=== PATIENT | female | born 1955 | race Caucasian/White ===

== ENCOUNTER 2019-03-10 02:00 | Observation (INO) | payer OTHER ==
--- NOTE | 2019-03-10 02:17 | EDPHY ---
H & P Stated Complaint: RIGHT FLANK PAIN Time Seen by Provider: 03/10/19 02:17 HPI/ROS: Chief Complaint: Severe right kidney pain HPI: Patient was sleeping peacefully tonight when she suddenly woke w severe right flank pain. She has never had before. It is constant it waxes and wanes but never goes away completely. She denies any abdominal pain. She does state that she has had frequency and has also been very thirsty. PMH: Negative. No history of kidney stones Social History: Denies Tobacco use ROS: Neuro: No headache Constitutional: No Fever, No dizziness ENT: No runny nose, No sore throat Cardiac: No Chest Pain Pulmonary: No Shortness of Breath GI: No abdominal Pain Skin: No rash Heme: No easy bruising : Positive urgency, frequency, dysuria Eyes: No vision problems Musculoskeletal: No neck pain, positive back pain Complete Review of systems negative except as noted above Physical Exam: General: Alert in severe distress from pain, very colicky appearing rocking on the bed Eyes: no icterus or pallor ENT: Mouth: Mucus membranes dry Neck: supple Lungs CTA bilaterally, no respiratory distress Cardiac: Normal pulses, normal rate, normal rhythm, normal heart sounds GI: Abd Soft, non tender, no distention no pulsatile mass or bruit Back: Normal inspection, nml ROM, No CVAT, no vertebral tenderness Extremities: No swelling, nml ROM Skin: Warm, pink and dry, no rash, normal turgor Neuro: A&Ox3, MAEE, Nml Speech Reevaluations, MDM, and data interpretation Data Interpretation CT Independently viewed by me ED Course Initial Eval: Pt greeted and advised about plan for care. Initially she declined pain medicine Reevaluation On re-evaluation the patient's pain is improved but she still rocking on the bed uncomfortably. Therefore repeat pain medications are ordered. We discussed discharge home versus admission to the hospital and at this point she think she needs to be admitted to the hospital. Consult Dr.De Price, Case discussed with hospitalist Dr. Miramontes Medical Decision Making Differential Diagnosis and MDM: 63-year-old female with acute severe flank pain. Differential diagnosis includes cholecystitis, renal colic, appendicitis , pyelonephritis and hydronephrosis. The patient had severe pain that was persistent so CT scan done which does reveal significant hydronephrosis along with a 7 mm stone concerning for need for intervention. She then has infected urine as well present on admission and this in combination with an obstructing stone warrants admission to the hospital, IV antibiotics and potential operative intervention. I did discuss the case with the hospitalist who accepts the patient for admission and will contact Urology. - Personal History Current Tetanus/Diphtheria Vaccine: Yes Current Tetanus Diphtheria and Acellular Pertussis (TDAP): Yes - Medical/Surgical History Hx Asthma: No Hx Chronic Respiratory Disease: No Hx Diabetes: No Hx Cardiac Disease: No Hx Renal Disease: No Hx Cirrhosis: No Hx Alcoholism: No Hx HIV/AIDS: No Hx Splenectomy or Spleen Trauma: No - Social History Smoking Status: Never smoked Constitutional: Initial Vital Signs Temperature (C) 36.6 C 03/10/19 02:03 Heart Rate 67 03/10/19 02:03 Respiratory Rate 18 03/10/19 02:03 Blood Pressure 193/102 H 03/10/19 02:03 O2 Sat (%) 96 03/10/19 02:03 O2 Delivery Mode Room Air Allergies/Adverse Reactions: No Known Allergies Allergy (Verified 03/10/19 08:05) Home Medications: Medication Instructions Recorded Calcium Carbonate [Oyster Shell 500 mg PO DAILY 03/10/19 Calcium 500 mg (*)] Herbals/Supplements -Info Only 1 ea PO DAILY 03/10/19 Loratadine [Claritin 10 mg] 10 mg PO DAILY 03/10/19 Multivitamins [Multivitamin (*)] 1 each PO DAILY 03/10/19 Medical Decision Making - Diagnostics Imaging Results: Imaging Impressions Abdomen/Pelvis CT 03/10/19 02:28 IMPRESSION: 1. Moderate right hydronephrosis due to obstructing 7 mm calculus at the right ureterovesicular junction. 2. Small hiatal hernia. 3. Moderate diverticulosis. Final results are concordant with initial interpretation. Preliminary report was communicated to the referring provider at 3:09 AM. MAMADOU. - Data Points Laboratory Results: Laboratory Results 03/10/19 02:16 03/10/19 02:16 03/10/19 03/10/19 03/10/19 02:16 02:16 02:05 WBC 8.68 10^3/uL 10^3/uL (3.80-9.50) RBC 4.67 10^6/uL 10^6/uL (4.18-5.33) Hgb 14.0 g/dL g/dL (12.6-16.3) Hct 43.3 % % (38.0-47.0) MCV 92.7 fL fL (81.5-99.8) MCH 30.0 pg pg (27.9-34.1) MCHC 32.3 g/dL L g/dL (32.4-36.7) RDW 12.9 % % (11.5-15.2) Plt Count 210 10^3/uL 10^3/uL (150-400) MPV 10.8 fL fL (8.7-11.7) Neut % (Auto) 49.5 % % (39.3-74.2) Lymph % (Auto) 40.2 % % (15.0-45.0) [place] % (Auto) 6.6 % % (4.5-13.0) Eos % (Auto) 2.8 % % (0.6-7.6) Baso % (Auto) 0.7 % % (0.3-1.7) Nucleat RBC Rel Count 0.0 % % (0.0-0.2) Absolute Neuts (auto) 4.30 10^3/uL 10^3/uL (1.70-6.50) Absolute Lymphs (auto) 3.49 10^3/uL H 10^3/uL (1.00-3.00) Absolute Monos (auto) 0.57 10^3/uL 10^3/uL (0.30-0.80) Absolute Eos (auto) 0.24 10^3/uL 10^3/uL (0.03-0.40) Absolute Basos (auto) 0.06 10^3/uL 10^3/uL (0.02-0.10) Absolute Nucleated RBC 0.00 10^3/uL 10^3/uL (0-0.01) Immature Gran % 0.2 % % (0.0-1.1) Immature Gran # 0.02 10^3/uL 10^3/uL (0.00-0.10) Sodium 138 mEq/L mEq/L (135-145) Potassium 3.9 mEq/L mEq/L (3.5-5.2) Chloride 103 mEq/L mEq/L (97-110) Carbon Dioxide 25 mEq/l mEq/l (22-31) Anion Gap 10 mEq/L mEq/L (6-14) BUN 33 mg/dL H mg/dL (7-23) Creatinine 1.0 mg/dL mg/dL (0.6-1.0) Estimated GFR 56 Glucose 160 mg/dL H mg/dL (70-100) Calcium 9.2 mg/dL mg/dL (8.5-10.4) Urine Color YELLOW Urine Appearance MODERATELY TURBID Urine pH 7.0 (5.0-7.5) Ur Specific [place] 1.013 (1.002-1.030) Urine Protein NEGATIVE (NEGATIVE) Urine Ketones NEGATIVE (NEGATIVE) Urine Blood 1+ H (NEGATIVE) Urine Nitrate NEGATIVE (NEGATIVE) Urine Bilirubin NEGATIVE (NEGATIVE) Urine Urobilinogen NEGATIVE EU EU (0.2-1.0) Ur Leukocyte Esterase 1+ H (NEGATIVE) Urine RBC 3-5 /hpf H /hpf (0-3) Urine WBC 25-50 /hpf H /hpf (0-3) Ur Epithelial Cells TRACE /lpf /lpf (NONE-1+) Urine Bacteria TRACE /hpf H /hpf (NONE SEEN) Urine Mucus TRACE /lpf /lpf (NONE-1+) Urine Glucose NEGATIVE (NEGATIVE) Medications Given: Acetaminophen (Tylenol) 650 mg PO Q4HRS PRN PRN Reason: Pain, Mild/Fever, Can Take PO Stop: 09/06/19 04:36 Last Admin: 03/10/19 07:40 Dose: 650 mg Sodium Chloride (Ns) 1,000 mls @ 150 mls/hr IV CONT HAYDEE Stop: 09/06/19 04:44 Last Admin: 03/10/19 08:25 Dose: 1,000 mls Ketorolac Tromethamine (Toradol) 15 mg IVP Q6HRS PRN PRN Reason: Moderate pain Stop: 03/15/19 05:59 Last Admin: 03/10/19 08:25 Dose: 15 mg Ondansetron HCl (Zofran) 4 mg IVP Q4HRS PRN PRN Reason: Nausea/Vomiting, Can't Take PO Stop: 09/06/19 04:36 Last Admin: 03/10/19 04:59 Dose: 4 mg Oxycodone HCl (Oxycodone Ir) 5 mg PO Q4HRS PRN PRN Reason: Pain, Severe Able to Take PO Stop: 03/20/19 04:36 Last Admin: 03/10/19 05:41 Dose: 5 mg Tamsulosin HCl (Flomax) 0.4 mg PO DAILY HAYDEE Stop: 09/06/19 08:59 Last Admin: 03/10/19 08:24 Dose: 0.4 mg Discontinued Medications Hydromorphone HCl (Dilaudid) 0.5 mg IVP EDNOW ONE Stop: 03/10/19 04:16 Last Admin: 03/10/19 04:54 Dose: 0.5 mg Sodium Chloride (Ns) 1,000 mls @ 0 mls/hr IV ONCE ONE PRN Reason: Wide Open Stop: 03/10/19 02:24 Last Admin: 03/10/19 02:31 Dose: 1,000 mls Lidocaine HCl 90 mg/ Sodium (Chloride) 109 mls @ 71.358 mls/hr IV EDNOW ONE Stop: 03/10/19 04:31 Last Admin: 03/10/19 03:14 Dose: 109 mls Ceftriaxone Sodium/Dextrose (Rocephin 1 Gm (Premix)) 50 mls @ 100 mls/hr IV EDNOW ONE PRN Reason: Protocol Stop: 03/10/19 03:45 Last Admin: 03/10/19 04:57 Dose: 50 mls Lactated Ringer's (Lr) 1,000 mls @ 500 mls/hr IV EDNOW ONE Stop: 03/10/19 06:36 Last Admin: 03/10/19 05:41 Dose: 1,000 mls Ketorolac Tromethamine (Toradol) 15 mg IVP EDNOW ONE Stop: 03/10/19 02:24 Last Admin: 03/10/19 02:30 Dose: 15 mg Phenazopyridine HCl (Pyridium) 200 mg PO EDNOW ONE Stop: 03/10/19 03:30 Last Admin: 03/10/19 03:34 Dose: 200 mg Departure - Departure Disposition: [facility] Acute Clinical Impression: Calculus of right kidney, Hydronephrosis concurrent with and due to calculi of kidney and ureter, Acute pyelonephritis Condition: Fair
[2019-03-10] MEDS ORDERED: LIDOCAINE IV ONE (02:20)
[2019-03-10] MEDS ORDERED: NS IV ONE (02:20)
[2019-03-10] MEDS ORDERED: NS 1,000 ML IV ONE (02:23)
[2019-03-10] MEDS ORDERED: KETOROLAC 15 MG/1 ML SDV IVP ONE (02:23)
[2019-03-10 02:36] LABS: PLATELET COUNT 210 10^3/uL (150-400)
[2019-03-10] MEDS ORDERED: LIDOCAINE 1% 90 MG in NS 100 ML IV ONE (03:00)
[2019-03-10] MEDS ORDERED: PHENAZOPYRIDINE HCL 200 MG TAB PO ONE (03:29)
[2019-03-10] MEDS ORDERED: HYDROmorphONE/DILAUDID 2 MG/ML INJ IVP ONE (04:15)
[2019-03-10] MEDS ORDERED: ONDANSETRON 4 MG/2 ML VIAL IVP PRN (04:37)
[2019-03-10] MEDS ORDERED: LR 1,000 ML IV ONE (04:37)
[2019-03-10] MEDS ORDERED: HYDROmorphONE/DILAUDID 1 MG/ML INJ IVP PRN (04:37)
[2019-03-10] MEDS ORDERED: ONDANSETRON DISINTEGRATING 4 MG TAB PO PRN (04:37)
[2019-03-10] MEDS ORDERED: HYDROmorphONE/DILAUDID 1 MG/ML INJ ONE (04:44)
--- NOTE | 2019-03-10 04:57 | PDGENHP ---
History and Physical - Chief Complaint R flank pain - History of Present Illness 63 yo F w/ no PMHx presents with R flank pain. The pain woke her up from sleep around 1 AM. She was in usual state of good health yesterday. She is also feeling chills and urgency since the onset of the pain. Her pain is improved after pain medication in the ED. She is not displaying sepsis physiology. CT demonstrates 7 mm R sided stone. UA w/ mild inflammation and hematuria. She is being admitted for hydration, pain control, and possible urology intervention. Case discussed with ED physician Dr. Harden. History Information - Allergies/Home Medication List Allergies/Adverse Reactions: No Known Allergies Allergy (Unverified 03/10/19 02:05) Home Medications: NK [No Known Home Meds] 03/10/19 [Last Taken Unknown] I have personally reviewed and updated: family history, medical history - Past Medical History no pertinent PMH - Surgical History Reports: no pertinent surgical hx - Family History Additional family history: No hx of kidney stones - Social History Smoking Status: Never smoked Review of Systems Review of Systems: ROS: 10pt was reviewed & negative except for what was stated in HPI & below Physical Exam Physical Exam: Temp Pulse Resp BP Pulse Ox 36.6 C 87 16 121/88 H 95 03/10/19 02:03 03/10/19 04:49 03/10/19 04:49 03/10/19 04:49 03/10/19 04:49 Constitutional: appears nourished, uncomfortable Eyes: PERRL, EOMI Ears, Nose, Mouth, Throat: moist mucous membranes, no oral mucosal ulcers Cardiovascular: regular rate and rhythym, no murmur, rub, or gallop Respiratory: no respiratory distress, clear to auscultation Gastrointestinal: normoactive bowel sounds, soft, non-tender abdomen Skin: warm, normal color Musculoskeletal: full muscle strength, no muscle tenderness Neurologic: AAOx3, CN II-XII Intact Psychiatric: interacting appropriately, not anxious Lab Data & Imaging Review 03/10/19 02:16 03/10/19 02:16 WBC 8.68 10^3/uL (3.80-9.50) 03/10/19 02:16 RBC 4.67 10^6/uL (4.18-5.33) 03/10/19 02:16 Hgb 14.0 g/dL (12.6-16.3) 03/10/19 02:16 Hct 43.3 % (38.0-47.0) 03/10/19 02:16 MCV 92.7 fL (81.5-99.8) 03/10/19 02:16 MCH 30.0 pg (27.9-34.1) 03/10/19 02:16 MCHC 32.3 g/dL (32.4-36.7) L 03/10/19 02:16 RDW 12.9 % (11.5-15.2) 03/10/19 02:16 Plt Count 210 10^3/uL (150-400) 03/10/19 02:16 MPV 10.8 fL (8.7-11.7) 03/10/19 02:16 Neut % (Auto) 49.5 % (39.3-74.2) 03/10/19 02:16 Lymph % (Auto) 40.2 % (15.0-45.0) 03/10/19 02:16 [place] % (Auto) 6.6 % (4.5-13.0) 03/10/19 02:16 Eos % (Auto) 2.8 % (0.6-7.6) 03/10/19 02:16 Baso % (Auto) 0.7 % (0.3-1.7) 03/10/19 02:16 Nucleat RBC Rel Count 0.0 % (0.0-0.2) 03/10/19 02:16 Absolute Neuts (auto) 4.30 10^3/uL (1.70-6.50) 03/10/19 02:16 Absolute Lymphs (auto) 3.49 10^3/uL (1.00-3.00) H 03/10/19 02:16 Absolute Monos (auto) 0.57 10^3/uL (0.30-0.80) 03/10/19 02:16 Absolute Eos (auto) 0.24 10^3/uL (0.03-0.40) 03/10/19 02:16 Absolute Basos (auto) 0.06 10^3/uL (0.02-0.10) 03/10/19 02:16 Absolute Nucleated RBC 0.00 10^3/uL (0-0.01) 03/10/19 02:16 Immature Gran % 0.2 % (0.0-1.1) 03/10/19 02:16 Immature Gran # 0.02 10^3/uL (0.00-0.10) 03/10/19 02:16 Sodium 138 mEq/L (135-145) 03/10/19 02:16 Potassium 3.9 mEq/L (3.5-5.2) 03/10/19 02:16 Chloride 103 mEq/L (97-110) 03/10/19 02:16 Carbon Dioxide 25 mEq/l (22-31) 03/10/19 02:16 Anion Gap 10 mEq/L (6-14) 03/10/19 02:16 BUN 33 mg/dL (7-23) H 03/10/19 02:16 Creatinine 1.0 mg/dL (0.6-1.0) 03/10/19 02:16 Estimated GFR 56 03/10/19 02:16 Glucose 160 mg/dL (70-100) H 03/10/19 02:16 Calcium 9.2 mg/dL (8.5-10.4) 03/10/19 02:16 Urine Color YELLOW 03/10/19 02:05 Urine Appearance MODERATELY TURBID 03/10/19 02:05 Urine pH 7.0 (5.0-7.5) 03/10/19 02:05 Ur Specific [place] 1.013 (1.002-1.030) 03/10/19 02:05 Urine Protein NEGATIVE (NEGATIVE) 03/10/19 02:05 Urine Ketones NEGATIVE (NEGATIVE) 03/10/19 02:05 Urine Blood 1+ (NEGATIVE) H 03/10/19 02:05 Urine Nitrate NEGATIVE (NEGATIVE) 03/10/19 02:05 Urine Bilirubin NEGATIVE (NEGATIVE) 03/10/19 02:05 Urine Urobilinogen NEGATIVE EU (0.2-1.0) 03/10/19 02:05 Ur Leukocyte Esterase 1+ (NEGATIVE) H 03/10/19 02:05 Urine RBC 3-5 /hpf (0-3) H 03/10/19 02:05 Urine WBC 25-50 /hpf (0-3) H 03/10/19 02:05 Ur Epithelial Cells TRACE /lpf (NONE-1+) 03/10/19 02:05 Urine Bacteria TRACE /hpf (NONE SEEN) H 03/10/19 02:05 Urine Mucus TRACE /lpf (NONE-1+) 03/10/19 02:05 Urine Glucose NEGATIVE (NEGATIVE) 03/10/19 02:05 Assessment & Plan Assessment: 63 yo F presents with urolithiasis. Plan: 1. Urolithiasis - 7 mm stone in the right kidney per report (final read not yet available for review). Symptoms started this evening; also with chills and urgency but UA only suggestive of mild inflammation. - Admit for observation - Bolus second liter IVF now, follow with aggressive IVF - Tamsulosin daily - Pain control - S/p CTX x1 in ED; will hold further abx for now and monitor urine culture - Urology consult later today if stone not passing with hydration alone Diet - Regular Code - Full Ppx - SCDs Dispo - Admit under observation status
[2019-03-10] MEDS: oxyCODONE IR 5 MG TAB PO PRN ×3 (05:41→19:34)
[2019-03-10] MEDS: ACETAMINOPHEN 325 MG TAB PO PRN (07:40)
[2019-03-10] MEDS: TAMSULOSIN HCL 0.4 MG CAP PO SCH (08:24)
[2019-03-10] MEDS: NS 1,000 ML IV SCH ×2 (08:25→15:28)
[2019-03-10] MEDS: KETOROLAC 15 MG/1 ML SDV IVP PRN ×2 (08:25→15:28)
--- NOTE | 2019-03-10 08:55 | HOSPPROG ---
Hospitalist Progress Note Assessment/Plan: 63 yo F w/ no PMHx presents with R flank pain. The pain woke her up from sleep around 1 AM. First encounter, chart reviewed. *r sided kidney stone, UV junction, 7 mm -urology to see (spoke w Dr Daniels) -urine being strained, if she doesn't pass the stone; will get a ureteroscope tomorrow -supportive measures w Flomax and hydration *hydronephrosis -due to the above *pyuria -concern for UTI -cx pending -Ceftriaxone initiated *pain due to the above -Toradol *fever -cont ceftriaxone -blood cx pending sent and are pending *plan: recheck chemistry now and again in the morning, continue hydration. appreciate Dr Daniels seeing Eleonora. >30 minutes seeing and following up, coordinating Eleonora's care. Subjective: Eleonora is feeling better since being admitted, but have right sided flank pain. Objective: Vital Signs Temp Pulse Resp BP Pulse Ox 38.1 C 124 H 16 126/63 H 89 L 03/10/19 07:35 03/10/19 07:35 03/10/19 07:35 03/10/19 07:35 03/10/19 07:35 03/09/19 03/10/19 03/11/19 05:59 05:59 05:59 Intake Total 1300 Output Total 400 400 Balance 900 -400 - Physical Exam Constitutional: uncomfortable Eyes: PERRL Ears, Nose, Mouth, Throat: hearing normal Cardiovascular: regular rate and rhythym Respiratory: no respiratory distress Genitourinary: other (+flank pain on the r) Skin: warm Musculoskeletal: full muscle strength Neurologic: AAOx3 Psychiatric: interacting appropriately ICD10 Worksheet Patient Problems: Problems Problem Status Onset Acute pyelonephritis Acute Calculus of right kidney Acute Hydronephrosis concurrent with and due to calculi of kidney and ureter Acute
[2019-03-10] MEDS ORDERED: D5W NS 1,000 ML IV SCH ×2 (20:00)
--- NOTE | 2019-03-10 23:19 | SOAPPROG ---
SOAP Progress Note Assessment/Plan: Assessment: 7x6 mm right UVJ calculus. Plan: Proceed with ureteroscopy on Tues. AM if she does not spotaneously pass the stone in the meantime. See dictated consult note (# [id number]). 03/10/19 23:26 Objective: Vital Signs Temp Pulse Resp BP Pulse Ox 36.3 C 94 18 108/60 93 03/10/19 19:46 03/10/19 19:46 03/10/19 19:46 03/10/19 19:46 03/10/19 19:46 Laboratory Results 03/10/19 08:50 03/09/19 03/10/19 03/11/19 05:59 05:59 05:59 Intake Total 1300 1252 Output Total 400 2450 Balance 900 -9839 ICD10 Worksheet Patient Problems: Problems Problem Status Onset Acute pyelonephritis Acute Calculus of right kidney Acute Hydronephrosis concurrent with and due to calculi of kidney and ureter Acute
[2019-03-10] MEDS: KETOROLAC 15 MG/1 ML SDV IVP SCH (23:40)
--- NOTE | 2019-03-11 | GCON ---
[f rep st] CONSULTATION UROLOGY CONSULTATION DATE OF CONSULTATION: 03/10/2019 PHYSICIAN REQUESTING CONSULTATION: Hospitalist service. REASON FOR CONSULTATION: Symptomatic distal right ureteral calculus. HISTORY: This is a 63-year-old woman who was awakened with acute onset of severe right flank pain early on 03/10. Because of intractable pain, she presented to the emergency room. She underwent evaluation which included a CT scan and this revealed a distal right ureteral calculus. The patient was admitted for further management. Since admission, she is feeling better following initiation of analgesics. She is still having some flank discomfort, but it is tolerable and controlled with current medication regimen. She is also experiencing increased urinary frequency. She denies preadmission dysuria , gross hematuria, fevers, or flu-like symptoms. She also denies any history of nephrolithiasis, nor history of urinary tract infections. PAST MEDICAL HISTORY: Denies any medical problems. PAST SURGICAL HISTORY: None. MEDICATIONS: None. ALLERGIES: None known. FAMILY HISTORY: Her sister has had 1 kidney stone previously many years ago. SOCIAL HISTORY: The patient and her live in the [facility]. She denies use of tobacco products. REVIEW OF SYSTEMS: Unremarkable, other than mentioned above in the HPI and Past Medical History. PHYSICAL EXAM: GENERAL: Overweight white female lying supine in bed in no acute distress presently. VITAL SIGNS: Blood pressure 126/63, pulse 124, heart rate 16, oxygen saturations 89% on room air, temperature 38.1 Celsius. HEENT: Normocephalic, atraumatic. NECK: Normal appearance. HEART: Mildly tachycardic. CHEST: Unlabored respiratory pattern. ABDOMEN: Soft with mild right lower quadrant tenderness to deep palpation. No peritoneal signs nor involuntary guarding. BACK: Mild right CVA tenderness with percussion. VASCULAR: Normal femoral pulses bilaterally. EXTREMITIES: Warm without significant edema. NEUROLOGIC: She is alert and oriented. She answers all questions appropriately with normal mood and affect. IMAGING STUDIES: 03/10/[address] scan: Upon my review , notable for a solitary nonobstructing 4 mm right lower pole renal calculus. There is moderate right hydronephrosis and hydroureter down to a 7 x 4 x 6 mm long ureterovesical junction calculus. LABORATORY: Chemistry panel today notable for creatinine 1.1, compared to 1.05 earlier on 03/10. Electrolytes are otherwise relatively unremarkable. Admission CBC is normal, white blood cell count 8600. Admission urinalysis notable for 25-50 white blood cells, 3-5 red blood cells, trace bacteria, nitrite negative, 1+ leukocyte. IMPRESSION: 1. Symptomatic distal right ureteral calculus. 2. Asymptomatic solitary right lower pole nephrolithiasis. 3. Questionable pyuria. The patient has been started on ceftriaxone. I had an extensive discussion with the patient and her today regarding her clinical presentation and her symptomatic distal right ureteral calculus. Management options were reviewed including continuation of medical management versus ureteroscopic intraoperative management. All aspects regarding ureteroscopy were reviewed with the patient today. This includes technical aspects involved, typical convalescence time, expected benefits, alternatives, and potential risks/complications (including but not limited to inability to find existing calculus, inability to remove existing calculus, urinary tract infection, urinary tract scarring, postoperative hematuria, possible need for further surgical stone management, and ureteral stent side effects). PLAN: 1. Continue with medical management this evening. 2. We are scheduled to proceed with intraoperative right ureteroscopy and calculus management tomorrow morning if she does not pass the calculus spontaneously in the meantime. 3. Continue ceftriaxone as ordered by the hospitalist service. Thank you for this consultation. /[id number]/MODL MTDD
[2019-03-11] MEDS: KETOROLAC 15 MG/1 ML SDV IVP SCH (05:44)
[2019-03-11] MEDS ORDERED: LR 1,000 ML IV ONE (06:28)
[2019-03-11] MEDS ORDERED: IOPAMIDOL (ISOVUE-M 300) 15 ML VIAL ONE (06:58)
[2019-03-11] MEDS ORDERED: LIDOCAINE 2% JELLY 20 ML (UROJECT) ONE (06:58)
--- NOTE | 2019-03-11 06:58 | PDANEPAE ---
ANE Past Medical History - Pulmonary History Hx Oxygen in Use at Home: No Hx Sleep Apnea: No Sleep Apnea Screening Result - Last Documented: Negative - Endocrine History Hx Diabetes: No ANE Review of Systems Review of Systems: ANE Patient History - Allergies Allergies/Adverse Reactions: No Known Allergies Allergy (Verified 03/10/19 08:05) - Home Medications Home Medications: Calcium Carbonate [Oyster Shell Calcium 500 mg (*)] 500 mg PO DAILY 03/10/19 [ Last Taken Unknown] Herbals/Supplements -Info Only 1 ea PO DAILY 03/10/19 [Last Taken Unknown] Loratadine [Claritin 10 mg] 10 mg PO DAILY 03/10/19 [Last Taken Unknown] Multivitamins [Multivitamin (*)] 1 each PO DAILY 03/10/19 [Last Taken Unknown] - NPO status NPO Since - Liquids (Date): 03/11/19 NPO Since - Liquids (Time): 00:00 NPO Since - Solids (Date): 03/10/19 NPO Since - Solids (Time): 18:00 - Smoking Hx Smoking Status: Never smoked ANE Labs/Vital Signs - Labs Result Diagrams: 03/10/19 02:16 03/11/19 05:38 - Vital Signs Blood Pressure: 143/78 Heart Rate: 97 Respiratory Rate: 18 O2 Sat (%): 95 Height: 170.18 cm Weight: 94.619 kg ANE Physical Exam - Airway Neck exam: FROM Mallampati Score: Class 2 Mouth exam: normal dental/mouth exam - Pulmonary Pulmonary: no respiratory distress - Cardiovascular Cardiovascular: regular rate and rhythym - ASA Status ASA Status: II ANE Anesthesia Plan Anesthesia Plan: general endotracheal anesthesia
[2019-03-11] MEDS ORDERED: ROCURONIUM 50 MG/5 ML VIAL ONE (07:08)
[2019-03-11] MEDS ORDERED: fentaNYL 100 MCG/2 ML INJ ONE (07:08)
[2019-03-11] MEDS ORDERED: PROPOFOL 200 MG/20 ML VIAL ONE (07:08)
[2019-03-11] MEDS ORDERED: ONDANSETRON 4 MG/2 ML VIAL ONE (07:08)
[2019-03-11] MEDS ORDERED: DEXAMETHASONE 4 MG/ML VIAL ONE (07:09)
[2019-03-11] MEDS ORDERED: LIDOCAINE 2% 100 MG/5 ML SYR ONE (07:09)
[2019-03-11] MEDS ORDERED: levOFLOXACIN 500 MG/DEXTROSE 100 ML IV ONE (07:15)
--- NOTE | 2019-03-11 07:32 | POSTOPPROG ---
Post Op Note Date of Operation: 03/11/19 Surgeon: Veronica Daniels (# [id number]) Anesthesia: GET(General Endotracheal) Pre-op Diagnosis: Distal right ureteral calculus Post-op Diagnosis: Distal right ureteral calculus Procedure: Ureteroscopy w/ laser litho, RGP, stent placement Findings: See op note Inf/Abcess present in the surg proc area at time of surgery?: No EBL: Minimal Complications: None Drains: Other (4.7 Fr. multilength right ureteral stent) Specimen(s): Right ureteral calculus Text Box - Additional Text Additional Text: She can be discharged whenever deemed appropriate by hospital service on narcotic of choice & Uribel QID. She will need to FU in my office in 2 weeks for ureteral stent removal.
[2019-03-11] MEDS ORDERED: GLYCOPYRROLATE 0.2 MG/1 ML VIAL ONE ×2 (07:52→07:53)
[2019-03-11] MEDS ORDERED: NEOSTIGMINE METHYLSULFATE 10 MG/10 ML MDV ONE (07:52)
--- NOTE | 2019-03-11 08:23 | POSTANESTH ---
Post Anesthetic Evaluation Cardiovascular Status: Similar to Pre-Op Cond Respiratory Status: Similar to Pre-op Cond. Level of Consciousness/Mental Status: Can Participate in Eval, Mildly Sleepy, Arousable Pain Control: Adequate, Prn Tx Ordered Nausea/Vomiting Control: Adequate, Prn Tx Ordered Complications Possibly Related to Anesthesia: None Noted
[2019-03-11] MEDS ORDERED: PHENAZOPYRIDINE HCL 200 MG TAB PO SCH (09:00)
--- NOTE | 2019-03-11 09:16 | GOP ---
[f rep st] OPERATIVE REPORT DATE OF OPERATION: 03/11/2019 SURGEON: Veronica Daniels MD ANESTHESIA: General endotracheal. PREOPERATIVE DIAGNOSIS: Symptomatic distal right ureteral calculus. POSTOPERATIVE DIAGNOSIS: Symptomatic distal right ureteral calculus. PROCEDURE PERFORMED: 1. Cystourethroscopy, right retrograde pyelography. 2. Right ureteroscopy with holmium laser calculus lithotripsy and basket extraction. 3. Right ureteral stent placement (4.7-Emirati by 24 cm). FINDINGS: SPECIMENS: Right ureteral calculus fragment. ESTIMATED BLOOD LOSS: Minimal. DESCRIPTION OF PROCEDURE: The patient was brought to the operating room and administered general end otracheal anesthesia. She was carefully placed in the dorsal lithotomy position on the cystoscopic t able. The genital area was sterilely prepped with Betadine scrub and paint, and then draped in usual sterile fashion. Cystoscopy was performed with a 30-degree lens through a 22-Emirati sheath. The pa tient was noted to have a significant cystocele. The bladder urothelium was otherwise unremarkable. Ureteral orifices were normal in regard to shape and position along a descended trigone. A 5-Emirati open-ended ureteral catheter was used to perform retrograde pyelography on the right side. This rev ealed a filling defect in the distal ureter along with moderate hydronephrosis and hydroureter, consi stent with the preoperative imaging appearance. A 0.035 inch hydrophilic guidewire was then advanced through the ureteral catheter and into the renal collecting system as confirmed fluoroscopically. T he ureteral catheter was removed while keeping the guidewire in place. A 4 cm balloon was used to di late the distal ureter by maintaining a pressure of 16 atmospheres for about 4 minutes. The balloon dilator and cystoscope were then removed while keeping the guidewire in place. Semi-rigid ureterosco py was performed alongside the guidewire. The large calculus was seen within the distal ureter. A 3 65 micron holmium laser fiber was used to fragment the calculus. One dominant fragment was remaining , and this was removed unremarkably with a Zero tip Nitinol stone basket and submitted to Pathology f or chemical analysis. Minute fragments were otherwise remaining, and it was determined these would p ass spontaneously without difficulty. The ureteroscope was removed and the cystoscope was back-loade d over the guidewire. A 4.7-Emirati by 24 cm hydrophilic ureteral stent was advanced over the guidewi re until it was properly positioned, as seen fluoroscopically in the kidney and cystoscopically in th e bladder. The bladder was then drained of all return, which was relatively clear. The instruments were removed and 20 mL of 2% lidocaine injected transurethrally for postoperative analgesic purposes. The patient was awakened, extubated, transferred to her bed, then taken to the recovery room. She tolerated the procedure well overall. INDICATIONS FOR SURGERY: This woman was admitted yesterday with a symptomatic distal right ureteral calculus which she has been unable to pass spontaneously. It was recommended that she undergo intrao perative management. The indications for the procedures, as well as potential risks and complication s, were discussed with the patient preoperatively. She appeared to understand, her questions were an swered, and she wished to proceed. Written informed surgical consent was thereafter obtained. COMPLICATIONS: None. DISPOSITION: She was transferred to the recovery room in stable condition. She may be discharged wh enever deemed appropriate by the Hospitalist Service, and instructed to follow up in my office in [place] roximately 2 weeks for ureteral stent removal. She should be discharged on narcotic of choice as wel l as Uribel one capsule four times daily until stent removal. /[id number]/MODL
[2019-03-11] MEDS: TAMSULOSIN HCL 0.4 MG CAP PO SCH (09:21)
--- NOTE | 2019-03-11 09:49 | HOSPPROG ---
Hospitalist Progress Note Assessment/Plan: 63 yo F w/ no PMHx presents with R flank pain. The pain woke her up from sleep around 1 AM. *r sided kidney stone, UV junction, 7 mm -s/p ureteroscope w stent placement *hydronephrosis -due to the above *UTI -cx shows gram neg castro lactose cvt rn and normal krystian -Ceftriaxone initiated *renal insufficiency -due to the above -should improve w stent -dc Toradol *pain due to the above -better *fever -blood cx pending -none further *plan: dc after lunch if doing well,dc on abx, and Uribel qid and pain medicatioons Subjective: Eleonora has no further flank pain, mainly feels some urinary retention. Objective: Vital Signs Temp Pulse Resp BP Pulse Ox 36.5 C 71 16 95/56 L 96 03/11/19 09:16 03/11/19 09:16 03/11/19 09:16 03/11/19 09:16 03/11/19 09:16 Laboratory Results 03/11/19 05:38 03/10/19 03/11/19 03/12/19 05:59 05:59 05:59 Intake Total 1300 2802 520 Output Total 400 2950 0 Balance 900 -148 520 - Physical Exam Constitutional: no apparent distress, appears nourished, not in pain Eyes: PERRL Ears, Nose, Mouth, Throat: hearing normal Cardiovascular: regular rate and rhythym Respiratory: no respiratory distress Skin: warm Musculoskeletal: full muscle strength Neurologic: AAOx3 Psychiatric: interacting appropriately ICD10 Worksheet Patient Problems: Problems Problem Status Onset Acute pyelonephritis Acute Calculus of right kidney Acute Hydronephrosis concurrent with and due to calculi of kidney and ureter Acute
[2019-03-11 12:58] VITALS: BP 122/75
--- NOTE | 2019-03-11 13:24 | ASDISCHSUM ---
Discharge Information Plan Status:Home with No Needs Medically Cleared to Leave:03/11/2019 Discharge Date:03/11/2019 CM D/C Disposition:Home, Routine, Self-Care ADT D/C Disposition: Projected Discharge Date:03/11/2019 Transportation at D/C:Family Discharge Delay Reason: Follow-Up Date:03/11/2019 Discharge Slot: Final Diagnosis:ureterolithiasis, uti Placement Information Patient Contact Information Contact Name:MISTY Relationship: Address:[address] Work Phone: City:[facility] Phone: State/Zip Code:[place] [address] Email: Financial Information Financial Class:[employer] [facility] Primary Plan Number:[id number] Secondary Plan Desc: Secondary Plan Number: Assessment Information LACE LACE Length of stay for Answers: 1 day current admission Acuity / Level of Answers: No Care: Did the patient have an inpatient admission? # of Emergency department Answers: 1-2 visits in the last 6 months Score: 2 Date Signed: 03/11/2019 01:22 PM Electronically Signed By:Tanika Bautista Case Management Discharge Plan Note Case Management Discharge Discharge Order Complete? Answers: Yes Patient to Obtain Answers: via Family Medications Transportation Arranged Answers: Family/Friends Transport will Pick (Date 03/11/2019 12:00 AM & Time) Family Notified Answers: Yes Notes: in the room Discharge Comments Notes: CM communicated with pt's RN. Pt lives independently with and was admitted for hydronephrosis due to a kidney stone that was removed surgically today by urology. No therapies ordered. Pt discharged independently and per RN was comfortable with this plan. No CM needs noted at this time. Date Signed: 03/11/2019 01:21 PM Electronically Signed By:Tanika Bautista Intervention Information
--- NOTE | 2019-03-11 13:32 | GDS ---
[f rep st] DISCHARGE SUMMARY DISCHARGE DIAGNOSES: 1. Right kidney stone with associated hydronephrosis. 2. Urinary tract infection. 3. Renal insufficiency. 4. Pain due to this. 5. Fever. CONSULTATION: Dr. Daniels. HISTORY AND HOSPITAL COURSE: Briefly, this patient is a very nice 63-year-old woman without any sign ificant past medical history. She presented to the emergency room with feeling chills and urgency in her right back area. A CT scan was performed, which demonstrated a 7 mm right-sided stone. She was seen and evaluated by Dr. Daniels, and on 03/11/2019, she had a right ureteroscopy with lithotripsy a s well as a right ureteral stent placement. She will be discharged home and follow up with Dr. Barb earl in the outpatient setting. HOSPITAL COURSE PER PROBLEM: 1. Right-sided kidney stone status post ureteroscope with stent placement, doing well. 2. Hydronephrosis. This should resolve with the above. 3. Urinary tract infection. 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 She was treated with ceftriaxone. I will discharge her home on oral Levaquin. 4. Renal insufficiency. Discontinued any nephrotoxins medications, should improve with stent placem ent and hydration. 5. Pain due to this, well controlled. 6. Fever, none further. Blood cultures are pending. DISCHARGE CONDITION: Stable, blood pressure is 122/75, heart rate is 69, respiratory rate is 16, O2 sats on room air 93%, temp is 36.8 Celsius. MEDICATIONS AT DISCHARGE: Please see the EMR. DISCHARGE INSTRUCTIONS: 1. To follow up with Dr. Daniels in 2 weeks for ureteral stent removal. 2. No NSAIDs. 3. Get her kidney function checked with her primary care provider on Sunday to make sure she is tren ding down. 4. Have her primary care follow up with her urine culture and blood cultures. 5. To take the Levaquin as instructed. To note that this can affect her tendons so if she has pain, especially in her Achilles, to stop taking. 6. Stay well hydrated. /[id number]/MODL
[2019-03-11] MEDS: ACETAMINOPHEN 325 MG TAB PO PRN (14:39)
== END 2019-03-11 15:23 | disposition home or self-care (01) ==
LOC: F1N 05:24
PROVIDERS: ADMIT Student in an Organized Health Care Education/Training Program; ATTEND Internal Medicine
PROC: 0T768DZ Dilation of Right Ureter with Intraluminal Device, Via Natural or Artificial Opening Endoscopic (ICD-10-PCS; principal; 2019-03-11 07:15)
PROC: 0TC68ZZ Extirpation of Matter from Right Ureter, Via Natural or Artificial Opening Endoscopic (ICD-10-PCS; principal; 2019-03-11 07:15)
PROC: BT16YZZ Fluoroscopy of Right Ureter using Other Contrast (ICD-10-PCS; principal; 2019-03-11 07:15)
PROC: 0TF68ZZ Fragmentation in Right Ureter, Via Natural or Artificial Opening Endoscopic (ICD-10-PCS; principal; 2019-03-11 07:15)
DX: N13.2 Hydronephrosis with renal and ureteral calculous obstruction (principal); N39.0 Urinary tract infection, site not specified; B96.20 Unspecified Escherichia coli [E. coli] as the cause of diseases classified elsewhere; N17.9 Acute kidney failure, unspecified; N81.10 Cystocele, unspecified
CPT/HCPCS: 52356; 74176; 76000; C1726; C1758; G0378; 82365-90; 96365; C2625; J0696; J1100; J1170; J1885; J2001; J2405; J2704; J3010; Q9967

== ENCOUNTER → 2019-03-14 | Outpatient (CLI) | payer OTHER | LOC: FIMAGING 14:20 | PROVIDERS: ATTEND Physician Assistant | DX: M79.661 Pain in right lower leg (principal) ==